=== PATIENT | female | born 1950 | race Two or more races ===

== ENCOUNTER 2018-03-10 08:35 | Inpatient (IN) | payer OTHER | END 2018-03-12 13:45 | disposition home or self-care (01) | LOC: ER 08:35 → TELE-EAST 03-11 21:01 → TELE 13:04 | DX: J45.901 Unspecified asthma with (acute) exacerbation (principal); R06.02 Shortness of breath; R09.02 Hypoxemia; J11.1 Influenza due to unidentified influenza virus with other respiratory manifestations; E78.5 Hyperlipidemia, unspecified; I10 Essential (primary) hypertension; J20.9 Acute bronchitis, unspecified; J10.1 Influenza due to other identified influenza virus with other respiratory manifestations ==